=== PATIENT | male | born 1965 | race Caucasian/White ===

== ENCOUNTER 2016-09-26 10:28 | Emergency (ER) | payer OTHER ==
--- NOTE | 2016-09-26 12:39 | PD ---
HPI Chief Complaint: Medical Clearance Time Seen by Provider: 11:20 Travel History International Travel<30 days: No Contact w/Intl Traveler<30days: No Traveled to known affect area: No History of Present Illness HPI Patient is a 51-year-old male brought in to emergency department for psychiatric evaluation. Patient was placed under Vazquez act when he was making statements at a car dealership this morning stating he was "waiting for the deputies to take him down". Patient reports financial trouble, he states that he wants to get his car back. He is afraid of losing his car because he has no money. Patient states that he hears voices, he has been making repetitive yarsanism statements. He denies any physical complaints at this time. Patient denies any significant past medical history, no illicit drug use. Patient states he drank a 4 loco last night, but does not routinely consume alcohol. [facility] Past Medical History Medical History: Denies Significant Hx Past Surgical History Abdominal Surgery: Yes (hernia repair) Family History Family History: Negative Social History Alcohol Use: Yes (occasionally) Tobacco Use: No Substance Use: No Allergies-Medications (Allergen,Severity, Reaction): Coded Allergies: No Known Allergies (Unverified , 09/26/16) Review of Systems Except as stated in HPI: all other systems reviewed are Neg Physical Exam Narrative GENERAL: Well-developed, well-nourished, alert male. Resting comfortably in no acute distress. SKIN: Warm and dry. Suspicious, raised lesion noted to the right anterior forearm. HEAD: Atraumatic. Normocephalic. EYES: Pupils equal and round. No scleral icterus. No injection or drainage. ENT: No nasal bleeding or discharge. Mucous membranes pink and moist. NECK: Trachea midline. No JVD. CARDIOVASCULAR: Regular rate and rhythm. No murmur appreciated. RESPIRATORY: No accessory muscle use. Clear to auscultation. Breath sounds equal bilaterally. GASTROINTESTINAL: Abdomen soft, non-tender, nondistended. Hepatic and splenic margins not palpable. MUSCULOSKELETAL: No obvious deformities. No clubbing. No cyanosis. No edema. NEUROLOGICAL: Awake and alert. No obvious cranial nerve deficits. Motor grossly within normal limits. Normal speech. PSYCHIATRIC: Appropriate mood and affect; insight and judgment impaired. Anabaptism ideations. Disordered thought process. Data Data Orders Complete Blood Count With Diff (09/26/16 11:29) Comprehensive Metabolic Panel (09/26/16 11:29) Thyroid Stimulating Hormone (09/26/16 11:29) Urinalysis - C+S If Indicated (09/26/16 11:29) Psych Screen (09/26/16 11:29) Drug Screen, Random Urine (09/26/16 11:29) Alcohol (Ethanol) (09/26/16 11:29) Salicylates (Aspirin) (09/26/16 11:29) Tylenol (Acetaminophen) (09/26/16 11:29) Ct Brain W/O Iv Contrast(Rout) (09/26/16 ) Labs Laboratory Tests Test 09/26/16 12:10 White Blood Count 7.3 TH/MM3 Red Blood Count 4.57 MIL/MM3 Hemoglobin 13.5 GM/DL Hematocrit 39.3 % Mean Corpuscular Volume 86.0 FL Mean Corpuscular Hemoglobin 29.6 PG Mean Corpuscular Hemoglobin 34.4 % Concent Red Cell Distribution Width 14.0 % Platelet Count 172 TH/MM3 Mean Platelet Volume 8.6 FL Neutrophils (%) (Auto) 55.7 % Lymphocytes (%) (Auto) 30.4 % Monocytes (%) (Auto) 10.5 % Eosinophils (%) (Auto) 2.7 % Basophils (%) (Auto) 0.7 % Neutrophils # (Auto) 4.1 TH/MM3 Lymphocytes # (Auto) 2.2 TH/MM3 Monocytes # (Auto) 0.8 TH/MM3 Eosinophils # (Auto) 0.2 TH/MM3 Basophils # (Auto) 0.1 TH/MM3 CBC Comment DIFF FINAL Differential Comment Urine Color YELLOW Urine Turbidity CLEAR Urine pH 6.5 Urine Specific Luck 1.024 Urine Protein TRACE mg/dL Urine Glucose (UA) NEG mg/dL Urine Ketones NEG mg/dL Urine Occult Blood NEG Urine Nitrite NEG Urine Bilirubin NEG Urine Urobilinogen LESS THAN 2.0 MG/DL Urine Leukocyte Esterase TRACE Urine RBC LESS THAN 1 /hpf Urine WBC 2 /hpf Urine Squamous Epithelial 1 /hpf Cells Urine Mucus FEW /lpf Microscopic Urinalysis Comment CULT NOT INDICATED Sodium Level 141 MEQ/L Potassium Level 3.7 MEQ/L Chloride Level 105 MEQ/L Carbon Dioxide Level 28.8 MEQ/L Anion Gap 7 MEQ/L Blood Urea Nitrogen 18 MG/DL Creatinine 1.01 MG/DL Estimat Glomerular Filtration 78 ML/MIN Rate Random Glucose 83 MG/DL Calcium Level 8.9 MG/DL Total Bilirubin 0.4 MG/DL Aspartate Amino Transf 39 U/L (AST/SGOT) Alanine Aminotransferase 62 U/L (ALT/SGPT) Alkaline Phosphatase 51 U/L Total Protein 7.2 GM/DL Albumin 3.8 GM/DL Thyroid Stimulating Hormone 2.650 uIU/ML 3rd Gen Urine Opiates Screen NEG Acetaminophen Level LESS THAN 2.0 MCG/ML Urine Barbiturates Screen NEG Urine Amphetamines Screen NEG Urine Benzodiazepines Screen NEG Urine Cocaine Screen NEG Urine Cannabinoids Screen NEG Ethyl Alcohol Level LESS THAN 3 MG/DL MDM Medical Decision Making Medical Screen Exam Complete: Yes Emergency Medical Condition: Yes Interpretation(s) Temp 97.8 BP 147/84 Heart rate 52 O2 sat is 98% on room air Differential Diagnosis Mood disorder versus substance abuse versus CVA versus UTI versus other Narrative Course Patient is a 51-year-old male brought into the emergency Department under Vazquez act for making abnormal statements while at a car dealership this morning. Patient denies any physical complaints. He continues to repeat yarsanism statements. Patient is easily agitated, stating that if he is held here (in the emergency department ) past 3:30 that he will have a heart attack and could and then his family will . He reports hearing voices. Patient denies any psychiatric history. Labs and imaging ordered and pending. CBC, chemistry, tox screen, urinalysis, alcohol level, acetaminophen level reviewed and are unremarkable. CT scan of the brain is negative for acute abnormality. He is medically clear for psychiatric evaluation at this time. Diagnosis Primary Impression: Medical clearance for psychiatric admission Condition: Stable Conchis Tyson Sep 26, 2016 12:38
[2016-09-26 12:41] LABS: AUTOMATED NEUTROPHIL # 4.1 TH/MM3 (1.8-7.7); BASOPHIL # 0.1 TH/MM3 (0-0.2); BASOPHIL % 0.7 % (0.0-2.0); EOSINOPHIL # 0.2 TH/MM3 (0-0.4); EOSINOPHIL % 2.7 % (0.0-4.0); HEMATOCRIT 39.3 % (39.0-51.0); HEMO FLAGS DIFF FINAL; LYMPH % 30.4 % (9.0-44.0); LYMPHOCYTE # 2.2 TH/MM3 (1.0-4.8); MEAN CORPUSCULAR HEMOGLOBIN 29.6 PG (27.0-34.0); MEAN CORPUSCULAR HGB CONC 34.4 % (32.0-36.0); MONO % 10.5 % (0.0-8.0); NEUT % 55.7 % (16.0-70.0); PLATELET COUNT 172 TH/MM3 (150-450); RED BLOOD COUNT 4.57 MIL/MM3 (4.50-5.90); WHITE BLOOD COUNT 7.3 TH/MM3 (4.0-11.0)
[2016-09-26 12:43] LABS: BLOOD, URINE NEG (NEG); COMMENT (UR) CULT NOT INDICATED; CULTURE IF INDICATED CULT NOT INDICATED; GLUCOSE,URINE NEG (NEG); KETONE, URINE NEG (NEG); MUCUS URINE FEW /lpf (OCC); NITRITE,URINE NEG (NEG); PH, URINE 6.5 (5.0-8.5); SQUAMOUS EPITHELIAL CELL URINE 1 /hpf (0-5); URINE COLOR YELLOW (YELLW/STRAW)
[2016-09-26 12:50] LABS: AMPHETAMINE, URINE NEG (NEG); BARBITURATES, URINE NEG (NEG); COCAINE, URINE NEG (NEG)
[2016-09-26 12:55] LABS: ANION GAP 7 MEQ/L (5-15); AST (GOT) 39 U/L (15-37); BICARBONATE 28.8 MEQ/L (21.0-32.0); BLOOD UREA NITROGEN 18 MG/DL (7-18); CHLORIDE 105 MEQ/L (98-107); GLOMERULAR FILTRATION RATE 78 ML/MIN (>89); POTASSIUM 3.7 MEQ/L (3.5-5.1); SODIUM (NA) 141 MEQ/L (136-145)
[2016-09-26 13:06] LABS: ACETAMINOPHEN LESS THAN 2.0 MCG/ML (10.0-30.0); ALKALINE PHOSPHATASE 51 U/L (45-117); ALT (GPT) 62 U/L (12-78); TOTAL BILIRUBIN ADULT 0.4 MG/DL (0.2-1.0)
--- NOTE | 2016-09-26 13:09 | RADRPT ---
EXAM DATE/TIME: 09/26/2016 12:54 [facility] COMPARISON: No previous studies available for comparison. INDICATIONS : Altered mental status RADIATION DOSE: 56.35 CTDIvol (mGy) MEDICAL HISTORY : None SURGICAL HISTORY : None. ENCOUNTER: Initial ACUITY: 1 day PAIN SCALE: 0/10 LOCATION: cranial TECHNIQUE: Multiple contiguous axial images were obtained of the head. Using automated exposure control and adj ustment of the mA and/or kV according to patient size, radiation dose was kept as low as reasonably a chievable to obtain optimal diagnostic quality images. FINDINGS: CEREBRUM: The ventricles are normal for age. No evidence of midline shift, mass lesion, hemorrhage or acute in farction. No extra-axial fluid collections are seen. POSTERIOR FOSSA: The cerebellum and brainstem are intact. The 4th ventricle is midline. The cerebellopontine angle i s unremarkable. EXTRACRANIAL: The visualized portion of the orbits is intact. SKULL: The calvaria is intact. No evidence of skull fracture. CONCLUSION: 1. No acute cranial abnormalities identified. Oleg Boggs MD on September 26, 2016 at 13:06 Board Certified Radiologist. This report was verified electronically.
[2016-09-26 15:40] VITALS: BP 147/84; PULSE 52; RESP 18; TEMP 97.8; O2SAT 98
[2016-09-26] MEDS ORDERED: LORazepam 2 MG/ML VIAL ONE (16:52)
[2016-09-26] MEDS ORDERED: HALOPERIDOL LACTATE 5 MG/ML AMP ONE (16:53)
[2016-09-26] MEDS ORDERED: LORazepam 2 MG/ML VIAL IM ONE (17:15)
[2016-09-26] MEDS ORDERED: HALOPERIDOL LACTATE 5 MG/ML AMP IM ONE (17:15)
[2016-09-26 17:27] VITALS: BP 154/102; PULSE 60; RESP 18; TEMP 96.6; O2SAT 97
[2016-09-26 22:24] VITALS: BP 127/62; PULSE 50; RESP 19; O2SAT 97
[2016-09-27 02:15] VITALS: BP 127/69; PULSE 55; RESP 17; O2SAT 97
== END 2016-09-27 05:30 ==
LOC: NEPJ 10:28
DX: F29 Unspecified psychosis not due to a substance or known physiological condition (principal); R45.1 Restlessness and agitation
CPT/HCPCS: 70450; 80053; 80307; 80320; 81001; 84443; 85025; 96372; 99284; J1630; 80329; G0480; J2060